=== PATIENT | female | born 1950 | race Caucasian/White ===

== ENCOUNTER 2024-06-24 08:16 | Day surgery (SDC) | payer MEDICARE ==
[2024-06-16 12:01] LABS: Hematocrit 42.8 % (34.9-44.5); Hemoglobin 14.7 g/dL (12.0-15.5); Mean Corpuscular HGB CONC 34.3 g/dL (32.0-36.0); Mean Corpuscular Hemoglobin 31.9 pg (27.0-33.0); Mean Corpuscular Volume 92.8 fL (81.6-98.3); Mean Platelet Volume 8.9 fL (7.4-10.4); Platelet Count 268 10x3/uL (150-450); RBC Distribution Width 12.2 % (11.5-14.5); Red Blood Cell (RBC) Count 4.61 10x6/uL (3.90-5.03)
[2024-06-24] MEDS ORDERED: Rocuronium Bromide 10 MG/ML (10ML VIAL) ONE (08:22)
[2024-06-24] MEDS ORDERED: Lidocaine 2% PF 5 ML VIAL ONE (08:22)
[2024-06-24] MEDS ORDERED: PROPOFOL 20 ML ONE (08:22)
[2024-06-24] MEDS ORDERED: Lidocaine 4% PF 5 ML AMP ONE (08:26)
[2024-06-24] MEDS ORDERED: Famotidine/PF 20 mg/2ml Vial ONE (08:42)
[2024-06-24] MEDS ORDERED: CeleCOXIB 100 MG CAP ONE (08:42)
[2024-06-24] MEDS ORDERED: Gabapentin 300 MG CAP ONE (08:42)
[2024-06-24] MEDS ORDERED: Lidocaine 1% w/Epinephrine 1:200K 30 ML VIAL ONE (09:58)
[2024-06-24] MEDS ORDERED: CEFAZOLIN 2 GM VIAL ONE (10:23)
[2024-06-24] MEDS ORDERED: fentaNYL 50 mcg/mL 1 mL Vial ONE ×2 (10:37→11:03)
[2024-06-24] MEDS ORDERED: Dexamethasone 4 mg/ml Vial ONE (11:06)
[2024-06-24] MEDS ORDERED: Esmolol 100 MG/10 ML VIAL ONE (11:06)
[2024-06-24] MEDS ORDERED: SUGAMMADEX SODIUM 200 MG/2 ML VIAL ONE ×2 (11:06→11:31)
[2024-06-24] MEDS ORDERED: Ondansetron PF 4 MG/2 ML Vial ONE (11:06)
[2024-06-24] MEDS ORDERED: Dexmedetomidine 200 MCG/2 ML VIAL ONE (11:06)
[2024-06-24] MEDS ORDERED: HYDROcodone/Acetaminophen 5/325 mg Tablet ONE (12:49)
== END 2024-06-24 13:20 | disposition home or self-care (01) ==
LOC: CSHSDC 08:16
PROVIDERS: ATTEND Obstetrics & Gynecology
PROC: 0JQC0ZZ Repair Pelvic Region Subcutaneous Tissue and Fascia, Open Approach (ICD-10-PCS; principal; 2024-06-24)
DX: N81.6 Rectocele (principal); E78.5 Hyperlipidemia, unspecified; Z79.899 Other long term (current) drug therapy; Z79.82 Long term (current) use of aspirin; Z98.890 Other specified postprocedural states
CPT/HCPCS: 36415; 85027; 86850; 86900; 86901; J1100; J2001; J2405; J2704; J3010; J3490